=== PATIENT | male | born 1950 | race African-American/Black ===

== ENCOUNTER 2021-12-17 22:10 | Inpatient (IN) ==
[2021-12-18] MEDS ORDERED: FUROSEMIDE 100 MG/10 ML VIAL IV STA (00:16)
[2021-12-18] MEDS ORDERED: ASPIRIN 325 MG TABLET PO STA (00:16)
[2021-12-18] MEDS ORDERED: ONDANSETRON 4 MG/2 ML VIAL IV STA (00:16)
[2021-12-18] MEDS ORDERED: MORPHINE 2 MG/1 ML SYRINGE IV STA (00:16)
[2021-12-18 00:58] LABS: Basophils % 0.3 % (0.0-0.8); Eosinophils # 0.2 10*3/uL (0.0-0.87); Eosinophils % 2.9 % (0.00-10.9); Hematocrit 32.3 VOL% (42.0-52.0); Immature Granulocytes % 0.5 %; Immature Granulocytes Absolute 0.03 #; Lymphocytes # 1.7 10*3/uL (1.4-4.0); Lymphocytes % 28.7 % (21.2-54.2); Mean Corpuscular Volume 99.7 FL (87-102); Mean Platelet Volume 9.4 FL (9.6-12.0); Monocytes # 0.7 10*3/uL (0.11-0.8); Monocytes % 11.1 % (1.7-12.7); Neutrophils % 56.5 % (38.7-73.9); Platelet Count 246 T/CUMM (130-400); Red Blood Count 3.24 MC/CUMM (3.8-5.5); Red Cell Distribution Width 18.2 % (9.3-17.3)
[2021-12-18 01:17] LABS: Alanine Aminotransferase 14 U/L (16-61); Albumin 3.4 G/DL (3.4-5.0); Alkaline Phosphatase 98 U/L (45-117); Aspartate Amino Transferase 13 U/L (0-37); Bilirubin,Total < 0.39 MG/DL (0.20-1.00); Blood Urea Nitrogen 26 MG/DL (7-18); Calcium 8.4 MG/DL (8.5-10.1); Carbon Dioxide 22 MMOL/L (21-32); Chloride 115 MMOL/L (98-107); Glucose 98 MG/DL (74-106); Osmolality,Calculated 285.3 MOS/KG (273-304); Potassium 4.1 MMOL/L (3.5-5.1); Sodium 141 MMOL/L (136-145); Total Protein 6.5 G/DL (6.4-8.2)
[2021-12-18 01:41] LABS: Barbiturates Screen,Urine Negative (Negative); Benzodiazepines Screen,Urine Negative (Negative); Cannabinoid Screen,Urine Negative (Negative); Opiate Screen,Urine Negative (Negative); Phencyclidine Screen,Urine Negative (Negative)
[2021-12-18 01:42] LABS: Bacteria,Urine Occasional /HPF (Few); Hyaline Casts,Urine 1 /LPF (0-3); Mucus,Urine Occasional /LPF (Occasional); RBC,Urine 1 /HPF (0-4)
[2021-12-18 01:44] LABS: Bilirubin,Urine Negative (Negative); Blood, Urine Negative (Negative); Glucose,Urine (UA) Negative (Negative); Ketones,Urine Negative (Negative); Nitrite,Urine Negative (Negative); Protein,Urine 100 mg/dL (Negative); Urine Appearance Clear (Clear); Urine Color Yellow (Yellow); Urine Specific Gravity >= 1.303 (1.001-1.035); Urine Urobilinogen 0.2 eU/dL (<2.0); Urine pH 5.5 (4.5-8.0)
[2021-12-18] MEDS ORDERED: ONDANSETRON 4 MG/2 ML VIAL IV PRN (02:47)
[2021-12-18] MEDS ORDERED: GLUCAGON 1 MG VIAL IM PRN (02:47)
[2021-12-18] MEDS ORDERED: DEXTROSE 10% 250 ML BAG IV PRN (02:58)
[2021-12-18] MEDS ORDERED: ENOXAPARIN 40 MG/0.4 ML SYRINGE SUBCUT SCH (09:00)
[2021-12-18] MEDS: DICLOFENAC 1% GEL 100 GM TUBE TOP SCH ×3 (10:15→20:34)
[2021-12-18] MEDS: PANTOPRAZOLE 40 MG TABLET PO SCH (10:15)
[2021-12-18] MEDS: LACTATED RINGERS 1,000 ML IV SCH ×2 (10:18→20:36)
[2021-12-18] MEDS: DOCUSATE SODIUM 100 MG CAPSULE PO SCH ×2 (10:18→20:36)
[2021-12-18 10:52] LABS: Basophils % 0.4 % (0.0-0.8); Eosinophils # 0.2 10*3/uL (0.0-0.87); Hematocrit 34.2 VOL% (42.0-52.0); Hemoglobin 10.5 GM/DL (14.0-18.0); Immature Granulocytes % 0.4 %; Immature Granulocytes Absolute 0.02 #; Lymphocytes # 1.2 10*3/uL (1.4-4.0); Lymphocytes % 21.7 % (21.2-54.2); Mean Corpuscular HGB Conc 30.7 GM/DL (32-36); Mean Platelet Volume 9.4 FL (9.6-12.0); Monocytes # 0.6 10*3/uL (0.11-0.8); Monocytes % 10.6 % (1.7-12.7); Neutrophils % 63.9 % (38.7-73.9); Platelet Count 227 T/CUMM (130-400); Red Blood Count 3.42 MC/CUMM (3.8-5.5); Red Cell Distribution Width 18.3 % (9.3-17.3); White Blood Count 5.4 T/CUMM (4-12)
[2021-12-18 11:08] LABS: Calcium 8.6 MG/DL (8.5-10.1); Osmolality,Calculated 285.1 MOS/KG (273-304)
[2021-12-18] MEDS ORDERED: HEPARIN DRIP 25,000 UNITS/500 ML PREMIX IV SCH (11:45)
[2021-12-18] MEDS ORDERED: hydrALAZINE 20 MG/1 ML VIAL IV PRN (12:51)
[2021-12-18] MEDS ORDERED: amLODIPine 10 MG TABLET PO SCH (12:53)
[2021-12-18 13:23] LABS: INR 1.1; PT Patient Result 11.6 SECS (10.5-12.0)
[2021-12-18] MEDS ORDERED: ALBUTEROL/IPRATROPIUM 3 ML NEB RESP TX PRN (14:30)
[2021-12-18] MEDS: APIXABAN 5 MG TABLET PO SCH (20:34)
[2021-12-18] MEDS ORDERED: tiZANidine 4 MG TABLET PO PRN (23:25)
[2021-12-18] MEDS ORDERED: TEMAZEPAM 15 MG CAPSULE PO PRN (23:25)
[2021-12-19 04:07] LABS: Basophils % 0.4 % (0.0-0.8); Eosinophils # 0.1 10*3/uL (0.0-0.87); Eosinophils % 2.3 % (0.00-10.9); Hematocrit 29.5 VOL% (42.0-52.0); Immature Granulocytes % 0.2 %; Immature Granulocytes Absolute 0.01 #; Lymphocytes # 1.2 10*3/uL (1.4-4.0); Lymphocytes % 21.3 % (21.2-54.2); Mean Corpuscular HGB Conc 30.5 GM/DL (32-36); Mean Corpuscular Volume 102.1 FL (87-102); Mean Platelet Volume 10.1 FL (9.6-12.0); Monocytes # 0.6 10*3/uL (0.11-0.8); Monocytes % 10.2 % (1.7-12.7); Neutrophils % 65.6 % (38.7-73.9); Platelet Count 200 T/CUMM (130-400); Red Blood Count 2.89 MC/CUMM (3.8-5.5); Red Cell Distribution Width 17.9 % (9.3-17.3); White Blood Count 5.7 T/CUMM (4-12)
[2021-12-19 04:26] LABS: Osmolality,Calculated 280.5 MOS/KG (273-304)
[2021-12-19] MEDS: LACTATED RINGERS 1,000 ML IV SCH (08:40)
[2021-12-19] MEDS: DICLOFENAC 1% GEL 100 GM TUBE TOP SCH (09:32)
[2021-12-19] MEDS: PANTOPRAZOLE 40 MG TABLET PO SCH ×2 (09:32→09:44)
[2021-12-19] MEDS: APIXABAN 5 MG TABLET PO SCH (09:32)
[2021-12-19] MEDS: DOCUSATE SODIUM 100 MG CAPSULE PO SCH (09:46)
[2021-12-19 11:44] VITALS: BP 152/78
== END 2021-12-19 11:58 | disposition home health service (06) | DRG 176 ==
LOC: EDBD → EDUNIT# → N.ED 22:10 → N.3E 22:10 → SUATTDRO 12-18 11:22 → N.TELES 12-18 20:40 → N.3E 12-18 22:11
PROVIDERS: ADMIT Internal Medicine; ATTEND Internal Medicine

== ENCOUNTER 2021-12-28 14:50 | Inpatient (IN) ==
[2021-12-28] MEDS ORDERED: TRIAMCINOLONE ACETONIDE 40 MG/1 ML VIAL INTRAARTIC STA (16:44)
[2021-12-28 17:23] LABS: Basophils % 0.1 % (0.0-0.8); Eosinophils % 0.3 % (0.00-10.9); Hematocrit 28.5 VOL% (42.0-52.0); Hemoglobin 9.1 GM/DL (14.0-18.0); Immature Granulocytes % 0.9 %; Immature Granulocytes Absolute 0.12 #; Lymphocytes # 0.9 10*3/uL (1.4-4.0); Lymphocytes % 6.8 % (21.2-54.2); Mean Corpuscular HGB Conc 31.9 GM/DL (32-36); Mean Corpuscular Volume 94.4 FL (87-102); Mean Platelet Volume 9.9 FL (9.6-12.0); Monocytes # 0.8 10*3/uL (0.11-0.8); Monocytes % 6.1 % (1.7-12.7); NRBC # 0.03 10*3/uL; Neutrophils % 85.8 % (38.7-73.9); Platelet Count 426 T/CUMM (130-400); Red Blood Count 3.02 MC/CUMM (3.8-5.5); Red Cell Distribution Width 17.9 % (9.3-17.3); White Blood Count 12.7 T/CUMM (4-12)
[2021-12-28 17:46] LABS: Calcium 8.9 MG/DL (8.5-10.1); Osmolality,Calculated 282.7 MOS/KG (273-304); Potassium 4.2 MMOL/L (3.5-5.1); Uric Acid 11.2 MG/DL (3.5-7.2)
[2021-12-28 18:25] LABS: Sedimentation Rate-Westergren 119 MM/HR (0-20)
[2021-12-28 18:41] LABS: Lymphocytes,Synovial Fluid 4 %; Neutrophils,Synovial Fluid 96 %
[2021-12-28 18:45] LABS: Cholesterol Crystals None Seen /LPF
[2021-12-28] MEDS ORDERED: VANCOMYCIN INJ 1,000 MG in SODIUM CHLORIDE 0.9% 250 ML IV STA (18:50)
[2021-12-28] MEDS ORDERED: DOCUSATE SODIUM 100 MG CAPSULE PO PRN (19:20)
[2021-12-28] MEDS ORDERED: guaiFENesin/DM ER 600-30 MG TABLET PO PRN (19:20)
[2021-12-28] MEDS ORDERED: MORPHINE 2 MG/1 ML SYRINGE IV PRN (19:20)
[2021-12-28] MEDS ORDERED: DEXTROSE 10% 250 ML BAG IV PRN (19:20)
[2021-12-28] MEDS ORDERED: diphenhydrAMINE CAP 25 MG CAPSULE PO PRN (19:20)
[2021-12-28] MEDS ORDERED: GLUCAGON 1 MG VIAL IM PRN (19:20)
[2021-12-28] MEDS ORDERED: ONDANSETRON 4 MG/2 ML VIAL IV PRN (19:20)
[2021-12-28] MEDS ORDERED: ACETAMINOPHEN 325 MG TABLET PO PRN (19:20)
[2021-12-28] MEDS ORDERED: NICOTINE 21 MG/24 HR PATCH TRANSDERM PRN (19:20)
[2021-12-28] MEDS ORDERED: hydrALAZINE 20 MG/1 ML VIAL IV PRN (19:20)
[2021-12-28] MEDS: SODIUM CHLORIDE 0.9% 1,000 ML IV SCH (20:00)
[2021-12-28] MEDS: HEPARIN 5,000 UNIT/1 ML VIAL SUBCUT SCH (23:43)
[2021-12-29 05:49] LABS: Basophils % 0.1 % (0.0-0.8); Eosinophils # 0.1 10*3/uL (0.0-0.87); Eosinophils % 0.4 % (0.00-10.9); Hematocrit 25.3 VOL% (42.0-52.0); Hemoglobin 8.1 GM/DL (14.0-18.0); Immature Granulocytes % 0.8 %; Immature Granulocytes Absolute 0.09 #; Lymphocytes % 8.5 % (21.2-54.2); Mean Corpuscular Volume 94.1 FL (87-102); Mean Platelet Volume 10.6 FL (9.6-12.0); Monocytes # 0.8 10*3/uL (0.11-0.8); Monocytes % 7.1 % (1.7-12.7); NRBC # 0.03 10*3/uL; Neutrophils % 83.1 % (38.7-73.9); Red Blood Count 2.69 MC/CUMM (3.8-5.5); White Blood Count 11.2 T/CUMM (4-12)
[2021-12-29 05:53] LABS: Platelet Count 313 T/CUMM (130-400)
[2021-12-29 06:14] LABS: Calcium 8.3 MG/DL (8.5-10.1); Osmolality,Calculated 283.4 MOS/KG (273-304); Potassium 4.8 MMOL/L (3.5-5.1)
[2021-12-29] MEDS ORDERED: lisinopriL 20 MG TABLET PO SCH (09:00)
[2021-12-29] MEDS ORDERED: FUROSEMIDE 40 MG TABLET PO SCH (09:00)
[2021-12-29] MEDS ORDERED: VANCOMYCIN INJ 1,500 MG in SODIUM CHLORIDE 0.9% 500 ML IV SCH (09:00)
[2021-12-29] MEDS ORDERED: hydroCHLOROthiazide 25 MG TABLET PO SCH (09:00)
[2021-12-29] MEDS: POTASSIUM CHLORIDE 20 MEQ TABLET PO SCH ×2 (09:16→09:20)
[2021-12-29] MEDS: PANTOPRAZOLE 40 MG TABLET PO SCH (09:17)
[2021-12-29] MEDS: METOPROLOL SUCCINATE XL 25 MG TABLET PO SCH (09:17)
[2021-12-29] MEDS: CLOPIDOGREL 75 MG TABLET PO SCH (09:17)
[2021-12-29] MEDS: amLODIPine 10 MG TABLET PO SCH (09:17)
[2021-12-29] MEDS: HEPARIN 5,000 UNIT/1 ML VIAL SUBCUT SCH ×2 (09:19→21:57)
[2021-12-29] MEDS: BISACODYL 5 MG TABLET PO SCH (09:19)
[2021-12-29] MEDS: SODIUM CHLORIDE 0.9% 1,000 ML IV SCH (18:30)
[2021-12-30] MEDS: amLODIPine 10 MG TABLET PO SCH (09:55)
[2021-12-30] MEDS: CLOPIDOGREL 75 MG TABLET PO SCH (09:55)
[2021-12-30] MEDS: SODIUM CHLORIDE 0.9% 1,000 ML IV SCH (09:56)
[2021-12-30] MEDS: HEPARIN 5,000 UNIT/1 ML VIAL SUBCUT SCH (10:02)
[2021-12-30] MEDS: PANTOPRAZOLE 40 MG TABLET PO SCH (10:02)
[2021-12-30] MEDS: predniSONE 20 MG TABLET PO SCH ×2 (10:02→21:20)
[2021-12-30] MEDS: BISACODYL 5 MG TABLET PO SCH (10:02)
[2021-12-30] MEDS: POTASSIUM CHLORIDE 20 MEQ TABLET PO SCH (10:02)
[2021-12-30] MEDS: METOPROLOL SUCCINATE XL 25 MG TABLET PO SCH (10:02)
[2021-12-30] MEDS ORDERED: ALBUTEROL/IPRATROPIUM 3 ML NEB RESP TX PRN (11:06)
[2021-12-30] MEDS: COLCHICINE 0.6 MG CAPSULE PO SCH ×2 (14:30→21:20)
[2021-12-30] MEDS: POLYETHYLENE GLYCOL POWDER 17 GM PACK PO SCH (17:17)
[2021-12-30] MEDS: ZALEPLON 5 MG CAPSULE PO PRN (21:20)
[2021-12-30] MEDS: APIXABAN 5 MG TABLET PO SCH (21:20)
[2021-12-31 09:22] LABS: Basophils % 0.1 % (0.0-0.8); Hematocrit 25.9 VOL% (42.0-52.0); Hemoglobin 8.2 GM/DL (14.0-18.0); Immature Granulocytes % 1.2 %; Immature Granulocytes Absolute 0.15 #; Lymphocytes # 0.8 10*3/uL (1.4-4.0); Lymphocytes % 6.4 % (21.2-54.2); Mean Corpuscular HGB Conc 31.7 GM/DL (32-36); Mean Corpuscular Volume 93.8 FL (87-102); Monocytes # 0.5 10*3/uL (0.11-0.8); Monocytes % 4.2 % (1.7-12.7); NRBC # 0.03 10*3/uL; Neutrophils % 88.1 % (38.7-73.9); Platelet Count 397 T/CUMM (130-400); Red Blood Count 2.76 MC/CUMM (3.8-5.5); Red Cell Distribution Width 18.1 % (9.3-17.3); White Blood Count 12.5 T/CUMM (4-12)
[2021-12-31] MEDS: APIXABAN 5 MG TABLET PO SCH ×2 (09:36→21:23)
[2021-12-31] MEDS: PANTOPRAZOLE 40 MG TABLET PO SCH (09:36)
[2021-12-31] MEDS: amLODIPine 10 MG TABLET PO SCH (09:36)
[2021-12-31] MEDS: POTASSIUM CHLORIDE 20 MEQ TABLET PO SCH ×2 (09:36→18:31)
[2021-12-31] MEDS: METOPROLOL SUCCINATE XL 25 MG TABLET PO SCH (09:36)
[2021-12-31] MEDS: BISACODYL 5 MG TABLET PO SCH (09:36)
[2021-12-31] MEDS: predniSONE 20 MG TABLET PO SCH ×2 (09:36→21:23)
[2021-12-31] MEDS: COLCHICINE 0.6 MG CAPSULE PO SCH ×2 (09:36→21:23)
[2021-12-31] MEDS: CLOPIDOGREL 75 MG TABLET PO SCH (09:36)
[2021-12-31] MEDS: POLYETHYLENE GLYCOL POWDER 17 GM PACK PO SCH ×2 (09:37→18:31)
[2021-12-31 09:50] LABS: Risk Ratio 3.69
[2021-12-31 09:54] LABS: Calcium 8.9 MG/DL (8.5-10.1); Osmolality,Calculated 282.5 MOS/KG (273-304); Potassium 4.1 MMOL/L (3.5-5.1)
[2021-12-31] MEDS: MENTHOL/ZINC OXIDE OINT 71 GM JAR TOP SCH ×2 (16:33→21:23)
[2021-12-31] MEDS: ZALEPLON 5 MG CAPSULE PO PRN (21:23)
[2022-01-01 07:50] LABS: Basophils % 0.1 % (0.0-0.8); Hematocrit 26.9 VOL% (42.0-52.0); Hemoglobin 8.3 GM/DL (14.0-18.0); Immature Granulocytes % 1.3 %; Immature Granulocytes Absolute 0.16 #; Lymphocytes # 0.8 10*3/uL (1.4-4.0); Lymphocytes % 6.3 % (21.2-54.2); Mean Corpuscular HGB Conc 30.9 GM/DL (32-36); Mean Corpuscular Volume 95.4 FL (87-102); Mean Platelet Volume 9.6 FL (9.6-12.0); Monocytes # 0.6 10*3/uL (0.11-0.8); Monocytes % 4.6 % (1.7-12.7); NRBC # 0.05 10*3/uL; Neutrophils % 87.7 % (38.7-73.9); Platelet Count 394 T/CUMM (130-400); Red Blood Count 2.82 MC/CUMM (3.8-5.5); Red Cell Distribution Width 18.2 % (9.3-17.3); White Blood Count 12.7 T/CUMM (4-12)
[2022-01-01] MEDS: amLODIPine 10 MG TABLET PO SCH (08:54)
[2022-01-01] MEDS: METOPROLOL SUCCINATE XL 25 MG TABLET PO SCH (08:54)
[2022-01-01] MEDS: CLOPIDOGREL 75 MG TABLET PO SCH (08:54)
[2022-01-01] MEDS: APIXABAN 5 MG TABLET PO SCH ×2 (08:54→20:37)
[2022-01-01] MEDS: predniSONE 20 MG TABLET PO SCH ×2 (08:54→20:37)
[2022-01-01] MEDS: COLCHICINE 0.6 MG CAPSULE PO SCH ×2 (08:54→20:37)
[2022-01-01] MEDS: lisinopriL 20 MG TABLET PO SCH (08:55)
[2022-01-01] MEDS: metOLazone 5 MG TABLET PO SCH (08:55)
[2022-01-01] MEDS: PANTOPRAZOLE 40 MG TABLET PO SCH (08:55)
[2022-01-01] MEDS: POTASSIUM CHLORIDE 20 MEQ TABLET PO SCH (08:58)
[2022-01-01] MEDS: BISACODYL 5 MG TABLET PO SCH (08:58)
[2022-01-01] MEDS: POLYETHYLENE GLYCOL POWDER 17 GM PACK PO SCH (08:58)
[2022-01-01] MEDS: MENTHOL/ZINC OXIDE OINT 71 GM JAR TOP SCH ×2 (08:59→20:38)
[2022-01-02 08:14] VITALS: BP 155/82
[2022-01-02 08:38] LABS: Basophils % 0.1 % (0.0-0.8); Hematocrit 29.5 VOL% (42.0-52.0); Hemoglobin 9.5 GM/DL (14.0-18.0); Immature Granulocytes % 1.1 %; Immature Granulocytes Absolute 0.13 #; Lymphocytes # 1.2 10*3/uL (1.4-4.0); Lymphocytes % 10.5 % (21.2-54.2); Mean Corpuscular HGB Conc 32.2 GM/DL (32-36); Mean Corpuscular Volume 93.4 FL (87-102); Mean Platelet Volume 9.9 FL (9.6-12.0); Monocytes # 0.6 10*3/uL (0.11-0.8); Monocytes % 5.5 % (1.7-12.7); NRBC # 0.06 10*3/uL; Neutrophils % 82.8 % (38.7-73.9); Platelet Count 517 T/CUMM (130-400); Red Blood Count 3.16 MC/CUMM (3.8-5.5); White Blood Count 11.7 T/CUMM (4-12)
[2022-01-02] MEDS: CLOPIDOGREL 75 MG TABLET PO SCH (09:24)
[2022-01-02] MEDS: BISACODYL 5 MG TABLET PO SCH (09:24)
[2022-01-02] MEDS: predniSONE 20 MG TABLET PO SCH (09:24)
[2022-01-02] MEDS: MENTHOL/ZINC OXIDE OINT 71 GM JAR TOP SCH (09:24)
[2022-01-02] MEDS: PANTOPRAZOLE 40 MG TABLET PO SCH (09:24)
[2022-01-02] MEDS: METOPROLOL SUCCINATE XL 25 MG TABLET PO SCH (09:24)
[2022-01-02] MEDS: lisinopriL 20 MG TABLET PO SCH (09:24)
[2022-01-02] MEDS: COLCHICINE 0.6 MG CAPSULE PO SCH (09:24)
[2022-01-02] MEDS: amLODIPine 10 MG TABLET PO SCH (09:24)
[2022-01-02] MEDS: APIXABAN 5 MG TABLET PO SCH (09:24)
[2022-01-02] MEDS: metOLazone 5 MG TABLET PO SCH (09:24)
[2022-01-02] MEDS: POTASSIUM CHLORIDE 20 MEQ TABLET PO SCH (09:35)
[2022-01-02] MEDS: POLYETHYLENE GLYCOL POWDER 17 GM PACK PO SCH (09:35)
== END 2022-01-02 13:52 | disposition home or self-care (01) | DRG 554 ==
LOC: EDBD → EDUNIT# → N.ED 14:50 → SUATTDRO 19:20 → N.EDINP 19:20 → N.5E 20:56
PROVIDERS: ADMIT Family Medicine; ATTEND Internal Medicine

== ENCOUNTER 2022-01-07 11:46 | Observation (INO) ==
[2022-01-07 15:40] LABS: Basophils % 0.1 % (0.0-0.8); Eosinophils % 0.3 % (0.00-10.9); Hematocrit 30.6 VOL% (42.0-52.0); Hemoglobin 9.5 GM/DL (14.0-18.0); Immature Granulocytes % 1.8 %; Lymphocytes # 1.1 10*3/uL (1.4-4.0); Lymphocytes % 10.5 % (21.2-54.2); Mean Platelet Volume 9.7 FL (9.6-12.0); Monocytes # 0.5 10*3/uL (0.11-0.8); Monocytes % 4.4 % (1.7-12.7); Neutrophils % 82.9 % (38.7-73.9); Platelet Count 519 T/CUMM (130-400); Red Blood Count 3.29 MC/CUMM (3.8-5.5); Red Cell Distribution Width 19.3 % (9.3-17.3); White Blood Count 10.9 T/CUMM (4-12)
[2022-01-07 15:57] LABS: Alanine Aminotransferase 27 U/L (16-61); Alkaline Phosphatase 96 U/L (45-117); Aspartate Amino Transferase 20 U/L (0-37); Bilirubin,Total < 0.39 MG/DL (0.20-1.00); Blood Urea Nitrogen 61 MG/DL (7-18); Calcium 8.4 MG/DL (8.5-10.1); Carbon Dioxide 15 MMOL/L (21-32); Chloride 110 MMOL/L (98-107); Glucose 82 MG/DL (74-106); Osmolality,Calculated 288.8 MOS/KG (273-304); Potassium 4.7 MMOL/L (3.5-5.1); Sodium 137 MMOL/L (136-145)
[2022-01-07] MEDS ORDERED: SODIUM CHLORIDE 0.9% 500 ML IV STA (16:14)
[2022-01-07] MEDS ORDERED: ONDANSETRON 4 MG/2 ML VIAL IV PRN (17:36)
[2022-01-07] MEDS ORDERED: guaiFENesin/DM ER 600-30 MG TABLET PO PRN (17:36)
[2022-01-07] MEDS ORDERED: GLUCAGON 1 MG VIAL IM PRN (17:36)
[2022-01-07] MEDS ORDERED: hydrALAZINE 20 MG/1 ML VIAL IV PRN (17:36)
[2022-01-07] MEDS ORDERED: DEXTROSE 10% 250 ML BAG IV PRN (17:39)
[2022-01-07] MEDS ORDERED: LEVOFLOXACIN INJ 500 MG/100 ML PREMIX IV ONE (18:00)
[2022-01-07 18:12] LABS: % Iron Saturation 16.2 % (18-50)
[2022-01-07 18:14] LABS: Thyroid Stimulating Hormone 0.406 uIU/ml (0.358-3.74)
[2022-01-07 20:55] LABS: Folate 7.25 NG/ML (5.38-24.0)
[2022-01-07] MEDS ORDERED: HEPARIN 5,000 UNIT/1 ML VIAL SUBCUT SCH (21:00)
[2022-01-07] MEDS: APIXABAN 5 MG TABLET PO SCH (22:17)
[2022-01-07] MEDS: SODIUM BICARB INJ 50 MEQ in SODIUM CHLORIDE 0.45% 1,000 ML IV SCH (22:17)
[2022-01-08 06:17] LABS: Basophils % 0.1 % (0.0-0.8); Eosinophils # 0.2 10*3/uL (0.0-0.87); Eosinophils % 2.1 % (0.00-10.9); Hematocrit 29.4 VOL% (42.0-52.0); Hemoglobin 8.8 GM/DL (14.0-18.0); Immature Granulocytes % 1.4 %; Immature Granulocytes Absolute 0.11 #; Lymphocytes # 1.4 10*3/uL (1.4-4.0); Lymphocytes % 16.9 % (21.2-54.2); Mean Corpuscular HGB Conc 29.9 GM/DL (32-36); Mean Corpuscular Volume 96.4 FL (87-102); Mean Platelet Volume 9.7 FL (9.6-12.0); Monocytes # 0.6 10*3/uL (0.11-0.8); Neutrophils % 71.5 % (38.7-73.9); Platelet Count 406 T/CUMM (130-400); Red Blood Count 3.05 MC/CUMM (3.8-5.5); Red Cell Distribution Width 19.7 % (9.3-17.3)
[2022-01-08 06:42] LABS: Alanine Aminotransferase 21 U/L (16-61); Albumin 2.5 G/DL (3.4-5.0); Alkaline Phosphatase 84 U/L (45-117); Aspartate Amino Transferase 16 U/L (0-37); Bilirubin,Total < 0.39 MG/DL (0.20-1.00); Blood Urea Nitrogen 58 MG/DL (7-18); Calcium 7.6 MG/DL (8.5-10.1); Carbon Dioxide 17 MMOL/L (21-32); Chloride 116 MMOL/L (98-107); Cholesterol 131 MG/DL (50-200); Glucose 82 MG/DL (74-106); HDL Cholesterol 20 MG/DL (40-60); Osmolality,Calculated 295.3 MOS/KG (273-304); Potassium 4.2 MMOL/L (3.5-5.1); Risk Ratio 6.55; Sodium 141 MMOL/L (136-145); Total Protein 6.1 G/DL (6.4-8.2); Triglycerides 199 MG/DL (2-150); VLDL Cholesterol 39.8 MG/DL
[2022-01-08] MEDS: NICOTINE 21 MG/24 HR PATCH TRANSDERM SCH (08:57)
[2022-01-08] MEDS: CLOPIDOGREL 75 MG TABLET PO SCH (08:58)
[2022-01-08] MEDS: FERROUS SULFATE 325 MG TABLET PO SCH ×2 (08:58→09:06)
[2022-01-08] MEDS: FOLIC ACID 1 MG TABLET PO SCH ×2 (08:58→09:06)
[2022-01-08] MEDS: THIAMINE 100 MG TABLET PO SCH ×2 (08:58→09:07)
[2022-01-08] MEDS: COLCHICINE 0.6 MG CAPSULE PO SCH (08:58)
[2022-01-08] MEDS: PANTOPRAZOLE 40 MG TABLET PO SCH ×2 (08:58→09:06)
[2022-01-08] MEDS: predniSONE 20 MG TABLET PO SCH ×2 (08:59→09:06)
[2022-01-08] MEDS: METOPROLOL SUCCINATE XL 25 MG TABLET PO SCH (08:59)
[2022-01-08] MEDS: MULTIVITAMIN (INTRINSIC) CAPSULE PO SCH ×2 (08:59→09:06)
[2022-01-08] MEDS: amLODIPine 10 MG TABLET PO SCH (08:59)
[2022-01-08] MEDS: APIXABAN 5 MG TABLET PO SCH ×2 (08:59→20:50)
[2022-01-08] MEDS ORDERED: ERGOCALCIFEROL 50,000 UNIT CAPSULE PO SCH (09:00)
[2022-01-08] MEDS ORDERED: metOLazone 5 MG TABLET PO SCH (09:00)
[2022-01-08] MEDS ORDERED: FUROSEMIDE 40 MG TABLET PO SCH (09:00)
[2022-01-08] MEDS ORDERED: SODIUM CHLORIDE 0.9% 1,000 ML IV ONE (09:48)
[2022-01-08] MEDS: SODIUM BICARB INJ 50 MEQ in SODIUM CHLORIDE 0.45% 1,000 ML IV SCH ×2 (10:17→21:30)
[2022-01-08] MEDS ORDERED: DIPHENOXYLATE/ATROPINE 2.5-0.025 MG TABLET PO PRN (14:02)
[2022-01-08] MEDS: ACETAMINOPHEN 325 MG TABLET PO PRN (16:40)
[2022-01-09] MEDS: ACETAMINOPHEN 325 MG TABLET PO PRN ×2 (00:11→11:36)
[2022-01-09 06:43] LABS: Basophils % 0.2 % (0.0-0.8); Eosinophils # 0.1 10*3/uL (0.0-0.87); Eosinophils % 1.7 % (0.00-10.9); Hematocrit 28.3 VOL% (42.0-52.0); Hemoglobin 8.6 GM/DL (14.0-18.0); Immature Granulocytes % 0.8 %; Immature Granulocytes Absolute 0.05 #; Lymphocytes # 1.4 10*3/uL (1.4-4.0); Lymphocytes % 21.5 % (21.2-54.2); Mean Corpuscular HGB Conc 30.4 GM/DL (32-36); Mean Corpuscular Volume 95.6 FL (87-102); Mean Platelet Volume 9.6 FL (9.6-12.0); Monocytes # 0.7 10*3/uL (0.11-0.8); Monocytes % 10.7 % (1.7-12.7); Neutrophils % 65.1 % (38.7-73.9); Platelet Count 391 T/CUMM (130-400); Red Blood Count 2.96 MC/CUMM (3.8-5.5); Red Cell Distribution Width 19.8 % (9.3-17.3); White Blood Count 6.4 T/CUMM (4-12)
[2022-01-09 07:01] LABS: Calcium 8.3 MG/DL (8.5-10.1); Osmolality,Calculated 286.7 MOS/KG (273-304)
[2022-01-09] MEDS ORDERED: SODIUM CHLORIDE 0.9% 1,000 ML IV ONE (07:47)
[2022-01-09] MEDS: NICOTINE 21 MG/24 HR PATCH TRANSDERM SCH (10:10)
[2022-01-09] MEDS: amLODIPine 10 MG TABLET PO SCH (10:11)
[2022-01-09] MEDS: MULTIVITAMIN (INTRINSIC) CAPSULE PO SCH (10:11)
[2022-01-09] MEDS: FERROUS SULFATE 325 MG TABLET PO SCH (10:11)
[2022-01-09] MEDS: APIXABAN 5 MG TABLET PO SCH (10:12)
[2022-01-09] MEDS: FOLIC ACID 1 MG TABLET PO SCH (10:13)
[2022-01-09] MEDS: COLCHICINE 0.6 MG CAPSULE PO SCH (10:14)
[2022-01-09] MEDS: predniSONE 20 MG TABLET PO SCH (10:14)
[2022-01-09] MEDS: METOPROLOL SUCCINATE XL 25 MG TABLET PO SCH (10:14)
[2022-01-09] MEDS: PANTOPRAZOLE 40 MG TABLET PO SCH (10:14)
[2022-01-09] MEDS: THIAMINE 100 MG TABLET PO SCH (10:15)
[2022-01-09] MEDS: CLOPIDOGREL 75 MG TABLET PO SCH (10:15)
[2022-01-09] MEDS ORDERED: MENTHOL/ZINC OXIDE OINT 71 GM JAR TOP SCH (12:00)
[2022-01-09 12:14] VITALS: BP 161/58
[2022-01-09] MEDS ORDERED: LEVOFLOXACIN INJ 250 MG/50 ML PREMIX IV SCH (21:00)
== END 2022-01-09 15:31 | disposition home or self-care (01) ==
LOC: EDUNIT# → EDBD → N.EDINP 11:46 → N.ED 11:46 → N.3E 19:16 → N.TELEN 19:22
PROVIDERS: ADMIT Family Medicine; ATTEND Family Medicine